=== PATIENT | male | born 1950 | race Caucasian/White ===

== ENCOUNTER → 2018-05-17 | Outpatient (CLI) | payer MEDICARE, OTHER | END | disposition home or self-care (01) | LOC: CFH 15:34 | PROVIDERS: ATTEND Nurse Practitioner Primary Care | DX: M16.11 Unilateral primary osteoarthritis, right hip (principal); M47.816 Spondylosis without myelopathy or radiculopathy, lumbar region | CPT/HCPCS: 72100 ==

== ENCOUNTER 2018-05-18 07:07 | Outpatient (CLI) | payer MEDICARE, OTHER ==
[2018-05-18 12:41] LABS: BASOPHILS # (AUTO) 0.06 x10^3/uL (0-0.1); BASOPHILS % (AUTO) 1 % (0-1); EOSINOPHILS # (AUTO) 0.36 x10^3/uL (0-0.4); EOSINOPHILS % (AUTO) 5 % (1-7); LYMPHOCYTES # (AUTO) 2.32 x10^3/uL (1-3.4); LYMPHOCYTES % (AUTO) 33 % (22-44); MD NO; MEAN CORPUSCULAR HEMOGLOBIN 30.3 pg (27.5-34.5); MEAN CORPUSCULAR VOLUME 89.1 fL (81-97); MEAN PLATELET VOLUME 9.2 fL (7.4-10.4); MONOCYTES # (AUTO) 0.64 x10^3/uL (0.2-0.8); MONOCYTES % (AUTO) 9 % (2-9); NEUTROPHILS # (AUTO) 3.76 x10^3/uL (1.8-6.8); NEUTROPHILS % (AUTO) 53 % (42-75); PLATELET COUNT 219 x10^3/uL (130-400); RED BLOOD COUNT 4.92 x10^6/uL (4.38-5.82); RED CELL DISTRIBUTION WIDTH 13.8 % (9.4-14.8)
[2018-05-18 12:57] LABS: MICROSCOPIC AUTO
[2018-05-18 13:01] LABS: ALBUMIN 3.7 g/dL (3.4-5.0); ANION GAP 5 mmol/L (5-15); CALCIUM 8.6 mg/dL (8.5-10.1); CHLORIDE 109 mmol/L (98-107); CHOLESTEROL, TOTAL 199 mg/dL (140-239); HIGH-SENSITIVITY CRP 0.14 mg/dL (0.02-0.30); TRIGLYCERIDES 193 mg/dL (50-200); VLDL CHOLESTEROL 39 mg/dL (0-25)
[2018-05-18 13:08] LABS: HEMOGLOBIN A1C 5.8 % (4.2-6.3)
[2018-05-18 13:16] LABS: CULTURE INDICATED? YES
[2018-05-18 13:27] LABS: ALANINE AMINOTRANSFERASE 33 U/L (12-78); ALKALINE PHOSPHATASE 69 U/L (45-117); BILIRUBIN,TOTAL 0.3 mg/dL (0.2-1.0); CHOL/HDL RATIO 4.7; CREATININE 1.07 mg/dL (0.7-1.3); FOLATE LEVEL 18.2 ng/mL (3.1-17.5); FREE T4 (FREE THYROXINE) 0.75 ng/dL (0.76-1.46); HDL CHOL % 21 % (26-37); HDL CHOLESTEROL (DIRECT) 42 mg/dL (40-60); LDL CHOLESTEROL,CALCULATED 118 mg/dL (54-169); LDL/HDL RATIO 2.8 (0.5-3.0); TOTAL PROTEIN 7.4 g/dL (6.4-8.2)
== END 2018-05-18 23:59 | disposition home or self-care (01) ==
LOC: CFH 07:07
PROVIDERS: ATTEND Nurse Practitioner Primary Care
DX: M54.5 Low back pain (principal); M25.551 Pain in right hip; R53.83 Other fatigue; G89.29 Other chronic pain; R73.09 Other abnormal glucose; E78.2 Mixed hyperlipidemia; E55.9 Vitamin D deficiency, unspecified; R97.20 Elevated prostate specific antigen [PSA]; Z83.3 Family history of diabetes mellitus; Z12.5 Encounter for screening for malignant neoplasm of prostate
CPT/HCPCS: 36415; 80053; 80061; 81001; 82306; 82607; 82746; 83036; 84207; 84425; 84439; 84443; 84481; 85025; 86141; 87077; 87086; 87186; G0103; 84153

== ENCOUNTER → 2018-06-30 | Outpatient (CLI) | payer MEDICARE, OTHER ==
[~2018-06-30] MED LIST: No meds per pt.
[2018-06-30 10:13] LABS: BASOPHILS # (AUTO) 0.09 x10^3/uL (0-0.1); BASOPHILS % (AUTO) 1 % (0-1); EOSINOPHILS # (AUTO) 0.24 x10^3/uL (0-0.4); EOSINOPHILS % (AUTO) 4 % (1-7); LYMPHOCYTES % (AUTO) 29 % (22-44); MD NO; MEAN CORPUSCULAR HEMOGLOBIN 29.5 pg (27.5-34.5); MEAN CORPUSCULAR VOLUME 89.4 fL (81-97); MEAN PLATELET VOLUME 8.4 fL (7.4-10.4); MONOCYTES # (AUTO) 0.77 x10^3/uL (0.2-0.8); MONOCYTES % (AUTO) 11 % (2-9); NEUTROPHILS # (AUTO) 3.74 x10^3/uL (1.8-6.8); NEUTROPHILS % (AUTO) 55 % (42-75); PLATELET COUNT 253 x10^3/uL (130-400); RED BLOOD COUNT 5.24 x10^6/uL (4.38-5.82); RED CELL DISTRIBUTION WIDTH 13.5 % (9.4-14.8)
[2018-06-30 10:19] LABS: MICROSCOPIC NOT IND
[2018-06-30 10:22] LABS: ALANINE AMINOTRANSFERASE 29 U/L (12-78); ALBUMIN 3.8 g/dL (3.4-5.0); ANION GAP 6 mmol/L (5-15); CALCIUM 9.1 mg/dL (8.5-10.1); CHLORIDE 111 mmol/L (98-107); CREATININE 0.94 mg/dL (0.7-1.3)
[2018-06-30 10:24] LABS: ALKALINE PHOSPHATASE 68 U/L (45-117); BILIRUBIN,TOTAL 0.3 mg/dL (0.2-1.0); TOTAL PROTEIN 7.6 g/dL (6.4-8.2)
[2018-06-30 10:26] LABS: CULTURE INDICATED? NO
== END | disposition home or self-care (01) ==
LOC: STAR 09:07
PROVIDERS: ATTEND Orthopaedic Surgery
DX: Z01.818 Encounter for other preprocedural examination (principal); M16.11 Unilateral primary osteoarthritis, right hip
CPT/HCPCS: 36415; 80053; 81003; 85025; 87081; 87806; 93005; G0475

== ENCOUNTER 2019-08-23 13:00 | Emergency (ER) | payer MEDICARE, OTHER ==
[~2019-08-23] VITALS: Ht 185.4 cm; Wt 104.0 kg
[~2019-08-23 13:00] MED LIST changes: +OXYC-306 PO
[2019-08-23 13:14] VITALS: BP 149/95
[2019-08-23] MEDS ORDERED: HYDROcodone/APAP 5/325 TABLET ONE (13:45)
[2019-08-23] MEDS ORDERED: HYDROcodone/APAP 5/325 TABLET PO ONE (14:00)
--- NOTE | 2019-08-23 14:24 | NUR ---
PT REPORTS PAIN IS BETTER AT DC AFTER NORCO AND ICE.
== END 2019-08-23 14:26 | disposition home or self-care (01) ==
LOC: ED 13:32
DX: S60.212A Contusion of left wrist, initial encounter (principal); W01.0XXA Fall on same level from slipping, tripping and stumbling without subsequent striking against object, initial encounter; Y93.89 Activity, other specified; Y92.098 Other place in other non-institutional residence as the place of occurrence of the external cause; Y99.8 Other external cause status
CPT/HCPCS: 29125; 99283